=== PATIENT | female | born 1985 | race Two or more races ===

== ENCOUNTER 2018-12-11 21:42 | Emergency (ER) | payer MEDICAID, OTHER ==
[~2018-12-11] VITALS: Ht 172.7 cm; Wt 79.4 kg
--- NOTE | 2018-12-11 23:10 | NUR ---
Pt placed in room 4A. Pt ambulates to ER with c/o redness/swelling bump near right eyebrow/side of face x 2 months, here for worsening s/s x 3 days
--- NOTE | 2018-12-11 23:26 | NUR ---
Dr. Gen HENSLEY MD at bedside to evaluate pt.
--- NOTE | 2018-12-11 23:34 | NUR ---
Suture tray set-up at bedside per MD.
[2018-12-11] MEDS ORDERED: LIDOCAINE 1%-EPI 1:100,000 20 ML VIAL TP ONE (23:45)
[2018-12-11] MEDS ORDERED: CLINDAMYCIN HCL 150 MG CAPSULE PO ONE (23:45)
[2018-12-11] MEDS ORDERED: CLINDAMYCIN HCL 150 MG CAPSULE ONE (23:48)
--- NOTE | 2018-12-12 00:03 | NUR ---
Patient discharged to home in stable conditon. Written and verbal after care instructions given. Patient verbalizes understanding of instructions. I&D done by Dr. Blevins, site cleaned & dressed. Pt understands to come back in 2 days for wound check & follow up w insurance account specialist. All belongings w pt. VSS. NAD noted.
[2018-12-12 00:05] VITALS: BP 112/66
== END 2018-12-12 00:05 | disposition home or self-care (01) ==
LOC: ER 21:45
DX: L02.01 Cutaneous abscess of face (principal); Z91.048 Other nonmedicinal substance allergy status
CPT/HCPCS: 10060; 99283; J3490; A4663